=== PATIENT | female | born 1960 | race Caucasian/White ===

== ENCOUNTER 2019-06-13 09:18 | Inpatient (IN) | payer SELFPAY ==
[~2019-06-13] VITALS: Ht 162.6 cm; Wt 56.4 kg
[2019-06-13] MEDS ORDERED: LOPERAMIDE 2 MG (IMODIUM) TABLET PO PRN (09:45)
[2019-06-13] MEDS ORDERED: diphenhydrAMINE 25 MG TAB (BENADRYL) PO PRN (09:45)
[2019-06-13] MEDS ORDERED: MELATONIN 3 MG TABLET PO PRN (09:45)
[2019-06-13] MEDS ORDERED: HYDROcodone/APAP 5 MG/325 MG (LORTAB) TAB PO PRN (09:45)
[2019-06-13] MEDS ORDERED: CALCIUM CARBONATE 500 MG (TUMS) TAB.CHEW PO PRN (09:45)
[2019-06-13] MEDS ORDERED: ONDANSETRON 4 MG (ZOFRAN) ORAL DISSOLVE TAB PO PRN (09:45)
[2019-06-13] MEDS ORDERED: ACETAMINOPHEN 500 MG TAB (TYLENOL) PO PRN (09:45)
[2019-06-13] MEDS ORDERED: ONDANSETRON 4 MG/2 ML (SDV) Z0FRAN IVP PRN (09:45)
[2019-06-13] MEDS ORDERED: ALPRAZolam 0.25 MG (XANAX) TAB PO PRN (09:45)
[2019-06-13 11:44] VITALS: BP 174/82
[2019-06-13] MEDS: NS IV 1000 ML 1,000 ML IV SCH (12:02)
[2019-06-13] MEDS ORDERED: FLU QUADRIvalent (5+ YOA) 2019-2020 (AFLURIA) 0.5 ML IM ONE (13:00)
[2019-06-13 13:02] LABS: BASOPHILS % (AUTO) 0 % (0-10); EOSINOPHILS % (AUTO) 0 % (0-10); HEMATOCRIT 34 % (35-52); HEMOGLOBIN 11.8 G/DL (11.5-16.0); LYMPHOCYTES # (AUTO) 1.2 X 10^3 (1.0-4.0); LYMPHOCYTES % (AUTO) 15 % (12-44); MEAN CORPUSCULAR HEMOGLOBIN 33 PG (25-34); MEAN CORPUSCULAR HGB CONC 34 G/DL (32-36); MEAN CORPUSCULAR VOLUME 96 FL (80-99); MEAN PLATELET VOLUME 8.4 FL (7.4-10.4); MONOCYTES # (AUTO) 0.4 X 10^3 (0.0-1.0); MONOCYTES % (AUTO) 5 % (0-12); NEUTROPHILS # (AUTO) 6.1 X 10^3 (1.8-7.8); NEUTROPHILS % (AUTO) 80 % (42-75); PLATELET COUNT 328 10^3/uL (130-400); RED CELL DISTRIBUTION WIDTH 13.1 % (10.0-14.5); WHITE BLOOD COUNT 7.6 10^3/uL (4.3-11.0)
--- NOTE | 2019-06-13 13:15 | History & Physical-Hospitalist ---
[facility] 06/13/19 1315: History of Present Illness HPI/Chief Complaint Patient was seeing her regular doctor in [facility] and discovered some electrolyte abnormalities. They referred her to Dr. Paul who let her know that she had hyperkalemia and hyponatremia. Dr. Paul then recommended she come to [facility]. Patient states she was told to modify diet and drink to correct abnormalities at [facility]. Patient has been taking OTC K supplement that she started on her own. Duration of electrolyte abnormality is not known. She had not been to the doctor in a while because she had no insurance. Denies lethargy or confusion. Says she has been having R muscle cramps and soreness that started one month ago that worsens with exercise. Taking tylenol for the leg pain and it feels better, as well as stretching. Source: patient Exam Limitations: no limitations Date Seen 06/13/19 Attending Physician Celine Almazan DO PCP Referring Physician Date of Admission Jun 13, 2019 at 11:19 Home Medications & Allergies Home Medications Reviewed patient Home Medication Reconciliation performed by pharmacy medication reconciliations orthophotography technician and/or nursing. Patients Allergies have been reviewed. Allergies Allergies Coded Allergies No Allergy Information Available (Unverified06/13/19) Past Oafdpsd-Yrxkrn-Qoxirz Hx Patient Social History Marrital Status: Number of Children: 3 Employed/Student: unemployed Alcohol Use: Denies Use Recreational Drug Use: No Smoking Status: Current Everyday Smoker Type Used: Cigarettes Physical Abuse Screen: No Sexual Abuse: No Recent Foreign Travel: No Contact w/other who traveled: No Recent Hopitalizations: No Recent Infectious Disease Expo: No Seasonal Allergies Seasonal Allergies: Yes (varies not all the time ) Past Medical History Surgeries: Tonsillectomy Cardiac: Heart Murmur (When she was a child. Last she heard it was gone), Hypertension Sexually Transmitted Disease: No HIV/AIDS: No Female Reproductive Disorders: Denies Psychosocial: Anxiety, Depression History of Blood Disorders: No Family History Alcoholism 19 MOTHER Arthritis 19 MOTHER Myocardial infarction 19 FATHER Respiratory disorder 19 MOTHER Heart Disease, COPD Review of Systems Constitutional: No chills, No diaphoresis, No dizziness, No weakness EENTM: No hearing loss, No ear pain, No eye pain, No vision loss, No mouth pain, No throat pain Respiratory: cough (some days when waking up); No hemoptysis, No orthopnea, No short of breath Cardiovascular: No chest pain, No palpitations Gastrointestinal: No abdominal pain, No constipation, No diarrhea, No jaundice, No loss of appetite, No melena, No nausea, No vomiting Genitourinary: No dysuria, No hematuria Musculoskeletal: No back pain, No gout; joint pain (chronic knee pain, neg xray at [facility]); No neck pain Skin: No change in color, No change in hair/nails, No hx of skin cancer, No lesions, No lumps Psychiatric/Neurological: Anxiety, Depressed Physical Exam Physical Exam Vital Signs Vital Signs - First Documented 06/13/19 11:44 Temp 37.3 Pulse 89 Resp 20 B/P (MAP) 174/82 Pulse Ox 99 O2 Delivery Room Air Capillary Refill : Height, Weight, BMI Height: '" Weight: lbs. oz. kg; 21.93 BMI Method: General Appearance: No Apparent Distress, WD/WN HEENT: PERRL/EOMI, Pharynx Normal Neck: Non Tender, Supple Respiratory: Chest Non Tender, Lungs Clear, No Accessory Muscle Use, No Respiratory Distress, Decreased Breath Sounds Cardiovascular: Regular Rate, Rhythm, No Gallop, No Murmur Gastrointestinal: Non Tender, Soft Rectal: Deferred Back: No CVA Tenderness, No Vertebral Tenderness Extremity: Normal Capillary Refill, Normal Inspection, No Pedal Edema Neurologic/Psychiatric: Alert, Oriented x3 Skin: Normal Color, Warm/Dry Lymphatic: No Adenopathy Results Results/Procedures Labs Laboratory Tests 06/13/19 12:55 Patient resulted labs reviewed. Assessment/Plan Assessment and Plan Hyponatremia per Dr. Paul, labs pending Hyperkalemia Electrolyte Abnormalities HTN CBC, CMP, CXR, EKG, IV Fluids 75cc/hour NS Fluid restriction 800cc Home med reconciliation - request from [facility] Continue home meds for depression - escitalopram Continue home meds for HTN - lisinopril CELINE ALMAZAN DO 06/13/19 1402: History of Present Illness HPI/Chief Complaint CC: Severe hyponatremia HPI: This is a pt of Dr paul from [facility] who was directly admitted from home due to severe hyponatremia of 124. She continues to smoke, chest x ray was requested to rule out small cell lung cancer but there is a component of SIDH and she was drinking more water over the weekend due to hyperkalemia of which she stopped her potassium supplement of which she was taking for muscle cramps. At this current time pt is very nervous and wants to go out and smoke and wants to leave as soon as possible. Time Seen by a Provider: 11:30 Past Dpzvdwl-Atebff-Mrrcfb Hx Past Med/Social Hx: Reviewed Nursing Past Med/Soc Hx, Reviewed and Corrections made Family History Alcoholism 19 MOTHER Arthritis 19 MOTHER Myocardial infarction 19 FATHER Respiratory disorder 19 MOTHER Review of Systems Constitutional: see HPI, weakness Musculoskeletal: muscle cramps, other (Leg pain) Physical Exam Physical Exam General Appearance: No Apparent Distress Eyes: Right Eye Normal Inspection, Right Eye PERRL HEENT: PERRL/EOMI, TMs Normal, Normal ENT Inspection, Pharynx Normal, Moist Mucous Membranes Neck: Full Range of Motion, Normal Inspection, Non Tender Respiratory: Chest Non Tender, Lungs Clear, Normal Breath Sounds, No Accessory Muscle Use, No Respiratory Distress Cardiovascular: Regular Rate, Rhythm, No Edema, No Gallop, No JVD, No Murmur, Normal Peripheral Pulses Gastrointestinal: Normal Bowel Sounds, No Organomegaly, No Pulsatile Mass, Non Tender, Soft Back: Normal Inspection, No CVA Tenderness, No Vertebral Tenderness Extremity: Normal Capillary Refill, Normal Inspection, Normal Range of Motion, Non Tender, No Calf Tenderness, No Pedal Edema Neurologic/Psychiatric: Alert, Oriented x3, No Motor/Sensory Deficits, Normal Mood/Affect Skin: Normal Color, Warm/Dry Lymphatic: No Adenopathy Assessment/Plan Admission Diagnosis Assessment: Hyponatremia Smoker Psychogenic polydipsia Anxiety HTN Plan: IVF gentle rate Fluid restriction Smoking cessation Anxiety treatment Admission Status: Observation Assessment and Plan Assessment: Hyponatremia Excessive water intake Smoker Hypertension Anxiety Plan: Fluid restriction Gentle IV fluids SIADH rule out Diagnosis/Problems Diagnosis/Problems (1) Hyponatremia (2) Smoker (3) Anxiety (4) Hypertension (5) Muscle cramps Supervisory-Addendum Brief Verification & Attestation Participated in pt care: history, MDM, physical Personally performed: exam, history, MDM, supervision of care Care discussed with: Medical Student Procedures: n/a Results interpretation: Verified all documentation Verification and Attestation of Medical Student E/M Service A medical student performed and documented this service in my presence. I reviewed and verified all information documented by the medical student and made modifications to such information, when appropriate. I personally performed the physical exam and medical decision making. Celine Almazan, Jun 13, 2019,20:05 [facility] Jun 13, 2019 13:15 CELINE ALMAZAN DO Jun 13, 2019 14:02
[2019-06-13 13:27] LABS: ALANINE AMINOTRANSFERASE 22 U/L (0-55); ALBUMIN 4.4 GM/DL (3.2-4.5); ALKALINE PHOSPHATASE 111 U/L (40-136); BILIRUBIN,TOTAL 0.2 MG/DL (0.1-1.0); BUN/CREATININE RATIO 7; CALCIUM 9.5 MG/DL (8.5-10.1); CARBON DIOXIDE 22 MMOL/L (21-32); CHLORIDE 94 MMOL/L (98-107); CREATININE SERUM 1.05 MG/DL (0.60-1.30); GFR ESTIMATED 54; GLUCOSE 118 MG/DL (70-105); POTASSIUM 4.5 MMOL/L (3.6-5.0); TOTAL PROTEIN 7.1 GM/DL (6.4-8.2)
[2019-06-13 13:56] LABS: SODIUM 125 MMOL/L (135-145)
[2019-06-13] MEDS ORDERED: ENOXAPARIN 40 MG/0.4 ML (LOVENOX) SYR SC SCH (14:19)
[2019-06-13 15:26] VITALS: BP 184/82
--- NOTE | 2019-06-13 17:11 | Diagnostic Imaging Report ---
INDICATION: Hyponatremia. COMPARISON: None available. TECHNIQUE: Frontal and lateral radiographs of the chest dated June 13, 2019. FINDINGS: The cardiac silhouette and pulmonary vasculature are within normal limits. The lungs are hyperinflated with flattening of the diaphragm and prominence of the anterior clear space. Rounded densities are noted overlying the lung bases bilaterally, felt related to nipple shadows. The lungs are otherwise clear. No pleural effusion. No pneumothorax. Mild anterior wedge deformity within the lower thoracic spine. IMPRESSION: Background chronic obstructive pulmonary disease without superimposed acute cardiopulmonary abnormality. Mild anterior wedge deformity within the lower thoracic spine, age-indeterminate, though favored to be chronic in nature given appearance. Recommend correlation for pain at this location. Dictated by: Dictated on workstation # [id number]
[2019-06-13] MEDS ORDERED: LISI10TA2 PO (18:00)
[2019-06-13] MEDS ORDERED: ESCI20TA45 PO (18:00)
[2019-06-13 18:02] VITALS: BP 160/81
[2019-06-13 19:25] VITALS: BP 182/80
--- NOTE | 2019-06-13 20:00 | NUR ---
Notified by SEARCH ENGINE MARKETING SPECIALIST that BP was 182/80 and confirmed with manual BP. Dr Greer notified at this time of BP. Orders put in for amlodipine and lasix. Will continue to monitor vitals.
[2019-06-13] MEDS: SENNA W/DOCUSATE (SENOKOT S) TABLET PO SCH (20:08)
[2019-06-13] MEDS ORDERED: FUROSEMIDE 40 MG/4 ML INJ (LASIX) IVP NR (20:15)
[2019-06-13] MEDS ORDERED: amLODIPine 5 MG (NORVASC) TAB PO NR (20:15)
[2019-06-13] MEDS ORDERED: cloNIDine 0.1 MG (CATAPRES) TAB PO PRN (20:15)
[2019-06-14 00:34] VITALS: BP 150/81
[2019-06-14] MEDS: NS IV 1000 ML 1,000 ML IV SCH (01:38)
[2019-06-14 04:26] VITALS: BP 175/86
[2019-06-14 05:08] LABS: BASOPHILS % (AUTO) 0 % (0-10); EOSINOPHILS # (AUTO) 0.1 10^3/uL (0.0-0.3); EOSINOPHILS % (AUTO) 1 % (0-10); HEMATOCRIT 35 % (35-52); HEMOGLOBIN 11.8 G/DL (11.5-16.0); LYMPHOCYTES % (AUTO) 31 % (12-44); MEAN CORPUSCULAR HEMOGLOBIN 33 PG (25-34); MEAN CORPUSCULAR HGB CONC 34 G/DL (32-36); MEAN CORPUSCULAR VOLUME 96 FL (80-99); MEAN PLATELET VOLUME 8.8 FL (7.4-10.4); MONOCYTES # (AUTO) 0.6 X 10^3 (0.0-1.0); MONOCYTES % (AUTO) 10 % (0-12); NEUTROPHILS # (AUTO) 3.8 X 10^3 (1.8-7.8); NEUTROPHILS % (AUTO) 58 % (42-75); PLATELET COUNT 347 10^3/uL (130-400); RED CELL DISTRIBUTION WIDTH 13.4 % (10.0-14.5); WHITE BLOOD COUNT 6.5 10^3/uL (4.3-11.0)
[2019-06-14 05:29] LABS: ALBUMIN 4.2 GM/DL (3.2-4.5); BILIRUBIN,TOTAL 0.4 MG/DL (0.1-1.0); CALCIUM 9.6 MG/DL (8.5-10.1); CREATININE SERUM 1.18 MG/DL (0.60-1.30); POTASSIUM 4.2 MMOL/L (3.6-5.0); TOTAL PROTEIN 6.7 GM/DL (6.4-8.2)
[2019-06-14 08:00] VITALS: BP 173/103
[2019-06-14] MEDS: SENNA W/DOCUSATE (SENOKOT S) TABLET PO SCH (08:37)
[2019-06-14] MEDS ORDERED: amLODIPine 5 MG (NORVASC) TAB PO SCH (09:00)
[2019-06-14] MEDS ORDERED: lisINopril 10 MG (PRINIVIL) TABLET PO SCH (09:00)
[2019-06-14] MEDS ORDERED: AMLO5TAB9 PO (10:09)
[2019-06-14 12:34] VITALS: BP 173/103
--- NOTE | 2019-06-14 22:28 | Discharge Summary ---
Discharge Summary Hospital Course Was the Problem List Reviewed?: Yes Problems/Dx: (1) Hyponatremia (2) Smoker (3) Anxiety (4) Hypertension (5) Muscle cramps Hospital Course Date of Admission: Jun 13, 2019 at 11:19 Admission Diagnosis : Family Physician/Provider: Leticia Butt Aprn Date of Discharge: 06/14/19 Discharge Diagnosis: Hyponatremia Hospital Course: Hospital course: Pt had a short hospital course, she was placed on IV fluids, fluid restriction of 800 CCs a day, that will continue at 1500 CCs a day at discharge and sodium level was 125 at admission and increased to 131. Smoking cessation counseled, added Norvasc for BP out of control and she will have close follow-up with [facility] to further evaluate but chest X-ray only showed severe COPD. Labs and Pending Lab Test: Laboratory Tests 06/14/19 04:35: White Blood Count 6.5, Red Blood Count 3.62L, Hemoglobin 11.8, Hematocrit 35, Mean Corpuscular Volume 96, Mean Corpuscular Hemoglobin 33, Mean Corpuscular Hemoglobin Concent 34, Red Cell Distribution Width 13.4, Platelet Count 347, Mean Platelet Volume 8.8, Neutrophils (%) (Auto) 58, Lymphocytes (%) (Auto) 31, Monocytes (%) (Auto) 10, Eosinophils (%) (Auto) 1, Basophils (%) (Auto) 0, Neutrophils # (Auto) 3.8, Lymphocytes # (Auto) 2.0, Monocytes # (Auto) 0.6, Eosinophils # (Auto) 0.1, Basophils # (Auto) 0.0, Sodium Level 131L, Potassium Level 4.2, Chloride Level 98, Carbon Dioxide Level 23, Anion Gap 10, Blood Urea Nitrogen 8, Creatinine 1.18, Estimat Glomerular Filtration Rate 47, BUN/Creatinine Ratio 7, Glucose Level 100, Calcium Level 9.6, Corrected Calcium 9.4, Total Bilirubin 0.4, Aspartate Amino Transf (AST/SGOT) 19, Alanine Aminotransferase (ALT/SGPT) 19, Alkaline Phosphatase 92, Total Protein 6.7, Albumin 4.2 Home Meds Active Amlodipine Besylate 5 Mg Tablet 5 Mg PO DAILY Reported Escitalopram Oxalate 20 Mg Tablet 20 Mg PO DAILY Lisinopril 10 Mg Tablet 10 Mg PO DAILY Assessment/Pt Instructions [facility] 1 week Discharge Planning: <30 minutes discharge planning Discharge Instructions Discharge Diet: No Restrictions, Other Diet (fluid restriction 1500cc/day) Discharge Physical Examination Vital Signs Vital Signs Date Time Temp Pulse Resp B/P (MAP) Pulse Ox O2 Delivery O2 Flow Rate FiO2 06/14/19 12:34 36.7 93 18 173/103 96 Room Air General Appearance: No Apparent Distress, WD/WN Respiratory: Lungs Clear Cardiovascular: Regular Rate, Rhythm Allergies: Coded Allergies: No Allergy Information Available (Unverified , 06/13/19) Discharge Summary Date of Admission Jun 13, 2019 at 11:19 Date of Discharge Jun 14, 2019 at 12:51 Discharge Date: Jun 14, 2019 Admission Diagnosis Assessment: Hyponatremia Smoker Psychogenic polydipsia Anxiety HTN Plan: IVF gentle rate Fluid restriction Smoking cessation Anxiety treatment Discharge Diagnosis Assessment: Hyponatremia Excessive water intake Smoker Hypertension Anxiety Plan: Fluid restriction Gentle IV fluids SIADH rule out (1) Hyponatremia (2) Smoker (3) Anxiety (4) Hypertension (5) Muscle cramps FAM ALMAZAN DO Jun 14, 2019 22:27
--- OUTSIDE RECORDS SUMMARY | 2019-06-15 08:08 | XMS REPORT | Continuity of Care Document ---
Author Organization Unknown Address Unknown Phone Unavailable Allergies Active Description Code Type Severity Reaction Onset Reported/Identified Relationship to Patient Clinical Status Yes No Allergy Information Available [id number] Drug Allergy Unknown N/A 020 Medications There is no data. Problems There is no data. Procedures There is no data. Results Test Result Range TSH w/ FREE T4 - 05/08/19 13:44 TSH 0.84 mIU/L 0.40-4.50 T4, FREE 1.2 ng/dL 0.8-1.8 CMP - 05/08/19 13:44 GLUCOSE 90 mg/dL 65-99 UREA NITROGEN (BUN) 9 mg/dL 7-25 CREATININE 1.23 mg/dL 0.50-1.05 eGFR NON-AFR. BRITISH 49 mL/min/1.73m2 > OR = 60 eGFR 56 mL/min/1.73m2 > OR = 60 BUN/CREATININE RATIO 7 (calc) 6-22 SODIUM 131 mmol/L 135-146 POTASSIUM 4.6 mmol/L 3.5-5.3 CHLORIDE 94 mmol/L 98-110 CARBON DIOXIDE 27 mmol/L 20-32 CALCIUM 9.9 mg/dL 8.6-10.4 PROTEIN, TOTAL 7.4 g/dL 6.1-8.1 ALBUMIN 4.6 g/dL 3.6-5.1 GLOBULIN 2.8 g/dL (calc) 1.9-3.7 ALBUMIN/GLOBULIN RATIO 1.6 (calc) 1.0-2. 5 BILIRUBIN, TOTAL 0.2 mg/dL 0.2-1.2 ALKALINE PHOSPHATASE 128 U/L 37-153 AST 18 U/L 10-35 ALT 20 U/L 6-29 CBC - 05/08/19 13:44 WHITE BLOOD CELL COUNT 6.1 Thousand/uL 3 .8-10.8 RED BLOOD CELL COUNT 3.95 Million/uL 3.8 0-5.10 HEMOGLOBIN 12.7 g/dL 11.7-15.5 HEMATOCRIT 38.5 % 35.0-45.0 MCV 97.5 fL 80.0-100.0 MCH 32.2 pg 27.0-33.0 MCHC 33.0 g/dL 32.0-36.0 RDW 11.9 % 11.0-15.0 PLATELET COUNT 323 Thousand/uL 140-400 MPV 9.9 fL 7.5-12.5 ABSOLUTE NEUTROPHILS 3026 cells/uL 1500- 7800 ABSOLUTE LYMPHOCYTES 2159 cells/uL 850-3 900 ABSOLUTE MONOCYTES 854 cells/uL 200-950 ABSOLUTE EOSINOPHILS 31 cells/uL 15-500 ABSOLUTE BASOPHILS 31 cells/uL 0-200 NEUTROPHILS 49.6 % NRG LYMPHOCYTES 35.4 % NRG MONOCYTES 14.0 % NRG EOSINOPHILS 0.5 % NRG BASOPHILS 0.5 % NRG BMP - 06/06/19 09:14 GLUCOSE 100 mg/dL 65-99 UREA NITROGEN (BUN) 13 mg/dL 7-25 CREATININE 1.39 mg/dL 0.50-1.05 eGFR NON-AFR. BRITISH 42 mL/min/1.73m2 > OR = 60 eGFR 49 mL/min/1.73m2 > OR = 60 BUN/CREATININE RATIO 9 (calc) 6-22 SODIUM 129 mmol/L 135-146 POTASSIUM 5.6 mmol/L 3.5-5.3 CHLORIDE 95 mmol/L 98-110 CARBON DIOXIDE 26 mmol/L 20-32 CALCIUM 10.1 mg/dL 8.6-10.4 ESR/SED RATE - 06/12/19 15:31 SED RATE BY MODIFIED WESTERGREN 2 mm/h < OR = 30 OSMOLALITY, SERUM - 06/12/19 15:31 OSMOLALITY (SERUM) 261 mOsm/kg 278-305 OSMOLALITY, URINE - 06/12/19 15:31 OSMOLALITY (U) 91 mOsm/kg 50-1200 Complete blood count (CBC) with automate d white blood cell (WBC) differential - 06/13/19 12:55 Blood leukocytes automated count (number/volume) 7.6 10*3/uL 4.3-11.0 Blood erythrocytes automated count (number/volume) 3.57 10*6/uL 4.35-5.85 Venous blood hemoglobin measurement (mass/volume) 11.8 g/dL 11.5-16.0 Blood hematocrit (volume fraction) 34 % 35-52 Automated erythrocyte mean corpuscular volume 96 [ foz_us] 80-99 Automated erythrocyte mean corpuscular h emoglobin (mass per erythrocyte) 33 pg 25-34 Automated erythrocyte mean corpuscular h emoglobin concentration measurement (mass/volume) 34 g/dL 32-36 Automated erythrocyte distribution width ratio 13. 1 % 10.0- 14.5 Automated blood platelet count (count/volume) 328 10*3/uL 130-400 Automated blood platelet mean volume measurement 8.4 [foz_us] 7.4-10.4 Automated blood neutrophils/100 leukocytes 80 % 42-75 Automated blood lymphocytes/100 leukocytes 15 % 12-44 Blood monocytes/100 leukocytes 5 % 0-12 Automated blood eosinophils/100 leukocytes 0 % 0-10 Automated blood basophils/100 leukocytes 0 % 0-10 Blood neutrophils automated count (number/volume) 6.1 10*3 1.8-7.8 Blood lymphocytes automated count (number/volume) 1.2 10*3 1.0-4.0 Blood monocytes automated count (number/volume) 0. 4 10*3 0.0-1.0 Automated eosinophil count 0.0 10*3/uL 0 .0-0.3 Automated blood basophil count (count/volume) 0.0 10*3/uL 0.0-0.1 Comprehensive metabolic panel - 06/13/19 12:55 Serum or plasma sodium measurement (moles/volume) 125 mmol/L 135-145 Serum or plasma potassium measurement (moles/volume) 4.5 mmol/L 3.6-5.0 Serum or plasma chloride measurement (moles/volume) 94 mmol/L 98-107 Carbon dioxide 22 mmol/L 21-32 Serum or plasma anion gap determination (moles/volume) 9 mmol/L 5-14 Serum or plasma urea nitrogen measurement (mass/volume ) 7 mg/dL 7-18 Serum or plasma creatinine measurement (mass/volume) 1.05 mg/dL 0.60-1.30 Serum or plasma urea nitrogen/creatinine mass ratio 7 NRG Serum or plasma creatinine measurement w ith calculation of estimated glomerular filtration rate 54 NRG Serum or plasma glucose measurement (mass/volume) 118 mg/dL 70-105 Serum or plasma calcium measurement (mass/volume) 9.5 mg/dL 8.5-10.1 Serum or plasma total bilirubin measurement (mass/volu me) 0.2 mg/dL 0.1-1.0 Serum or plasma alkaline phosphatase ash surement (enzymatic activity/volume) 111 U/L 40-136 Serum or plasma aspartate aminotransfera se measurement (enzymatic activity/volume) 20 U/L 5-34 Serum or plasma alanine aminotransferase measurement (enzymatic activity/volume) 22 U/L 0-55 Serum or plasma protein measurement (mass/volume) 7.1 g/dL 6.4-8.2 Serum or plasma albumin measurement (mass/volume) 4.4 g/dL 3.2-4.5 CALCIUM CORRECTED 9.2 mg/dL 8.5-10.1 Serum or plasma lithium measurement (mol es/volume) - 06/13/19 12:55 BNP PT 55.5 pg/mL <100.0 Serum or plasma troponin i.cardiac measu rement (mass/volume) - 06/13/19 12:55 Serum or plasma troponin i.cardiac measurement (mass/v olume) < ng/mL <0.028 THYROID STIMULATING HORMONE - 06/13/19 1 2:55 THYROID STIMULATING HORMONE 0.46 u[iU]/mL 0.35-4.94 SODIUM URINE RANDOM - 06/13/19 14:47 [id number] 42 % NRG Complete blood count (CBC) with automate d white blood cell (WBC) differential - 06/14/19 04:35 Blood leukocytes automated count (number/volume) 6.5 10*3/uL 4.3-11.0 Blood erythrocytes automated count (number/volume) 3.62 10*6/uL 4.35-5.85 Venous blood hemoglobin measurement (mass/volume) 11.8 g/dL 11.5-16.0 Blood hematocrit (volume fraction) 35 % 35-52 Automated erythrocyte mean corpuscular volume 96 [ foz_us] 80-99 Automated erythrocyte mean corpuscular h emoglobin (mass per erythrocyte) 33 pg 25-34 Automated erythrocyte mean corpuscular h emoglobin concentration measurement (mass/volume) 34 g/dL 32-36 Automated erythrocyte distribution width ratio 13. 4 % 10.0- 14.5 Automated blood platelet count (count/volume) 347 10*3/uL 130-400 Automated blood platelet mean volume measurement 8.8 [foz_us] 7.4-10.4 Automated blood neutrophils/100 leukocytes 58 % 42-75 Automated blood lymphocytes/100 leukocytes 31 % 12-44 Blood monocytes/100 leukocytes 10 % 0-12 Automated blood eosinophils/100 leukocytes 1 % 0-10 Automated blood basophils/100 leukocytes 0 % 0-10 Blood neutrophils automated count (number/volume) 3.8 10*3 1.8-7.8 Blood lymphocytes automated count (number/volume) 2.0 10*3 1.0-4.0 Blood monocytes automated count (number/volume) 0. 6 10*3 0.0-1.0 Automated eosinophil count 0.1 10*3/uL 0 .0-0.3 Automated blood basophil count (count/volume) 0.0 10*3/uL 0.0-0.1 Comprehensive metabolic panel - 06/14/19 04:35 Serum or plasma sodium measurement (moles/volume) 131 mmol/L 135-145 Serum or plasma potassium measurement (moles/volume) 4.2 mmol/L 3.6-5.0 Serum or plasma chloride measurement (moles/volume) 98 mmol/L 98-107 Carbon dioxide 23 mmol/L 21-32 Serum or plasma anion gap determination (moles/volume) 10 mmol/L 5-14 Serum or plasma urea nitrogen measurement (mass/volume ) 8 mg/dL 7-18 Serum or plasma creatinine measurement (mass/volume) 1.18 mg/dL 0.60-1.30 Serum or plasma urea nitrogen/creatinine mass ratio 7 NRG Serum or plasma creatinine measurement w ith calculation of estimated glomerular filtration rate 47 NRG Serum or plasma glucose measurement (mass/volume) 100 mg/dL 70-105 Serum or plasma calcium measurement (mass/volume) 9.6 mg/dL 8.5-10.1 Serum or plasma total bilirubin measurement (mass/volu me) 0.4 mg/dL 0.1-1.0 Serum or plasma alkaline phosphatase ash surement (enzymatic activity/volume) 92 U/L 40-136 Serum or plasma aspartate aminotransfera se measurement (enzymatic activity/volume) 19 U/L 5-34 Serum or plasma alanine aminotransferase measurement (enzymatic activity/volume) 19 U/L 0-55 Serum or plasma protein measurement (mass/volume) 6.7 g/dL 6.4-8.2 Serum or plasma albumin measurement (mass/volume) 4.2 g/dL 3.2-4.5 CALCIUM CORRECTED 9.4 mg/dL 8.5-10.1 Encounters ACCT No. Visit Date/Time Discharge Status Pt. Type Provider Facility Loc./Unit Complaint [id number] 06/12/2019 14:30:00 Document Registration [id number] 06/12/2019 14:30:00 ACT [facility] [id number] 06/06/2019 10:00:00 Document Registration [id number] 05/08/2019 13:00:00 Document Registration [id number] 06/13/2019 11:19:00 020 12:51:00 DIS Inpatient ALMAZAN DO, FAM [facility] 4TH HYPONATREMIA
== END 2019-06-14 12:51 | disposition home or self-care (01) | DRG 641 ==
LOC: 4TH 11:19
PROVIDERS: ADMIT Internal Medicine; ATTEND Internal Medicine
DX: E87.1 Hypo-osmolality and hyponatremia (principal); F17.210 Nicotine dependence, cigarettes, uncomplicated; I10 Essential (primary) hypertension; F41.9 Anxiety disorder, unspecified; F32.9 Major depressive disorder, single episode, unspecified; E87.5 Hyperkalemia; R63.1 Polydipsia
CPT/HCPCS: 36415; 71046; 80053; 83880; 84300; 84443; 84484; 85025